=== PATIENT | female | born 1995 | race American Indian/Alaskan Native ===

== ENCOUNTER 2018-10-17 00:49 | Emergency (ER) | payer MEDICAID ==
[2018-10-17 01:22] LABS: Basophils % (Auto) 0.5 % (0.0-1.8); Eosinophils # (Auto) 0.1 K/mm3 (0.0-0.4); Eosinophils % (Auto) 1.2 % (0.0-4.3); Hematocrit 35.7 % (30.3-42.9); Hemoglobin 12.9 gm/dl (10.1-14.3); Lymphocytes # (Auto) 3.2 K/mm3 (1.2-5.4); Lymphocytes % (Auto) 31.4 % (13.4-35.0); Mean Corpuscular HGB Conc 36 % (30-34); Mean Corpuscular Volume 91 fl (79-97); Platelet Count 307 K/mm3 (140-440); Red Blood Count 3.93 M/mm3 (3.65-5.03); Red Cell Distribution Width 13.3 % (13.2-15.2)
[2018-10-17 01:42] LABS: BUN/Creatinine Ratio 13; Blood Urea Nitrogen 8 mg/dL (7-17); Calcium 9.3 mg/dL (8.4-10.2); Hemolysis Index 11
[2018-10-17 02:10] LABS: Bilirubin,Urine NEG (Negative); Blood,Urine NEG (Negative); Color,Urine Yellow (Yellow); Mucus,Urine FEW /HPF; Protein,Urine <15 mg/dL mg/dL (Negative); Urobilinogen,Urine < 2.0 mg/dL (<2.0)
[2018-10-17 02:32] LABS: HCG Qualitative,Urine Positive (Negative)
[2018-10-17] MEDS ORDERED: ZOFRAN IV ONE (03:51)
[2018-10-17] MEDS ORDERED: BENTYL IM ONE (03:51)
--- NOTE | 2018-10-17 04:55 | Ultrasound Report ---
PROCEDURE: US OB <= 14 WEEKS FETUS TECHNIQUE: Real-time transabdominal sonography of the uterus, placenta, amniotic fluid, adnexa, and fetus was performed with image documentation. Measurements were obtained to determine age/size. M-mode Doppler was used to document heartbeat. ADDITIONAL GESTATION: None. HISTORY: abd pain pos preg COMPARISONS: None . FINDINGS: CRL: 29.2 mm, which corresponds to a gestational age of: 9 weeks, 5 days. Yolk Sac: Appropriate for gestational age. . Embryonic Cardiac Activity: 168 bpm . Gestational Sac: Size and shape are appropriate for gestational age Placenta: Normal Amniotic fluid: Appropriate for gestational age. Cervix: Normal. Right Ovary: Normal . Left Ovary: Normal . Estimated delivery date: 04/29/2019 . Uterus and adnexa: Normal. IMPRESSION: Single live intrauterine gestation at approximately 9 weeks and 5 days . EDC by US 04/17 . This document is electronically signed by Homer Wu MD., October 17 2018 05:53:03 AM ET
--- NOTE | 2018-10-17 05:31 | Emergency Department Report ---
ED Abdominal Pain HPI - General Chief Complaint: Abdominal Pain Stated Complaint: / CRAMPING Time Seen by Provider: 10/17/18 03:49 Source: patient Mode of arrival: Ambulatory Limitations: No Limitations - History of Present Illness Initial Comments: pt is a 22 y/o aaf G2, P1, A0, pt is 8 weeks ,who present for abd dominal pain with n/v x 1 week, abd cramping worsening, there are no relieving or exacerbating factors. MD Complaint: abdominal pain (generalized ) Onset/Timin -: week(s) Location: LLQ, RLQ, suprapubic Radiation: LLQ, RLQ, suprapubic Migration to: suprapubic Severity: moderate Severity scale (0 -10): 5 Quality: cramping Consistency: constant Improves With: nothing Worsens With: nothing Associated Symptoms: denies other symptoms, nausea, vomiting. denies: fever, chills, constipation, dysuria, melena - Related Data LMP Date: 07/16/18 Previous Rx's Medication Instructions Recorded Last Taken Type Acetaminophen [Acetaminophen TAB] 650 mg PO Q6HR PRN #30 tablet 10/17/18 Unknown Rx Ondansetron [Zofran Odt] 4 mg PO Q8HR PRN #12 tab.rapdis 10/17/18 Unknown Rx Allergies Allergy/AdvReac Type Severity Reaction Status Date / Time No Known Allergies Allergy Verified 10/17/18 00:53 ED Review of Systems ROS: Stated complaint: / CRAMPING Other details as noted in HPI Constitutional: denies: chills, fever Eyes: denies: eye pain, eye discharge, vision change ENT: denies: ear pain, throat pain Respiratory: denies: cough, shortness of breath, wheezing Cardiovascular: denies: chest pain, palpitations Endocrine: no symptoms reported Gastrointestinal: abdominal pain, nausea, vomiting. denies: diarrhea, constipation, hematemesis, melena Genitourinary: frequency, dyspareunia. denies: urgency, dysuria, discharge Musculoskeletal: denies: back pain, joint swelling, arthralgia Skin: denies: rash, lesions Neurological: denies: headache, weakness, paresthesias Psychiatric: denies: anxiety, depression Hematological/Lymphatic: denies: easy bleeding, easy bruising ED Past Medical Hx - Past Medical History Previous Medical History?: No - Surgical History Past Surgical History?: No - Social History Smoking Status: Never Smoker Substance Use Type: None - Medications Home Medications: Home Medications Medication Instructions Recorded Confirmed Last Taken Type Acetaminophen [Acetaminophen TAB] 650 mg PO Q6HR PRN #30 tablet 10/17/18 Unknown Rx Ondansetron [Zofran Odt] 4 mg PO Q8HR PRN #12 tab.rapdis 10/17/18 Unknown Rx ED Physical Exam - General Limitations: No Limitations General appearance: alert, in no apparent distress - Head Head exam: Present: atraumatic, normocephalic - Eye Eye exam: Present: normal appearance, PERRL, EOMI Pupils: Present: normal accommodation - ENT ENT exam: Present: normal exam, mucous membranes moist - Neck Neck exam: Present: normal inspection, full ROM. Absent: tenderness, lymphadenopathy, thyromegaly - Respiratory Respiratory exam: Present: normal lung sounds bilaterally. Absent: respiratory distress, wheezes, stridor, chest wall tenderness - Cardiovascular Cardiovascular Exam: Present: regular rate, normal rhythm. Absent: systolic murmur, diastolic murmur, rubs, gallop - GI/Abdominal GI/Abdominal exam: Present: soft, tenderness (superpubic ), normal bowel sounds. Absent: distended, guarding, rebound, rigid, bruit, hernia - Rectal Rectal exam: Present: deferred - External exam: Present: other (deferred by patient ) - Extremities Exam Extremities exam: Present: normal inspection - Back Exam Back exam: Present: normal inspection, full ROM. Absent: tenderness, CVA tender ness (R), CVA tenderness (L), muscle spasm, rash noted - Neurological Exam Neurological exam: Present: alert, oriented X3, CN II-XII intact, normal gait - Psychiatric Psychiatric exam: Present: normal affect, normal mood - Skin Skin exam: Present: warm, dry, intact, normal color. Absent: rash ED Course Vital Signs 10/17/18 00:54 Temperature 98.1 F Pulse Rate 104 H Respiratory 18 Rate Blood Pressure 120/71 O2 Sat by Pulse 99 Oximetry ED Medical Decision Making - Lab Data Result diagrams: 10/17/18 00:58 10/17/18 00:58 P - EKG Data EKG shows normal: sinus rhythm, axis Rate: normal - Radiology Data Radiology results: report reviewed, image reviewed ROCEDURE: US OB <= 14 WEEKS FETUS TECHNIQUE: Real-time transabdominal sonography of the uterus, placenta, amniotic fluid, adnexa, and fetus was performed with image documentation. Measurements were obtained to determine age/size. M-mode Doppler was used to document heartbeat. ADDITIONAL GESTATION: None. HISTORY: abd pain pos preg COMPARISONS: None . FINDINGS: CRL: 29.2 mm, which corresponds to a gestational age of: 9 weeks, 5 days. Yolk Sac: Appropriate for gestational age. . Embryonic Cardiac Activity: 168 bpm . Gestational Sac: Size and shape are appropriate for gestational age Placenta: Normal Amniotic fluid: Appropriate for gestational age. Cervix: Normal. Right Ovary: Normal . Left Ovary: Normal . Estimated delivery date: 04/29/2019 . Uterus and adnexa: Normal. IMPRESSION: Single live intrauterine gestation at approximately 9 weeks and 5 days . EDC by US 04/29/2019 . This document is electronically signed by Yanira Gustafson MD., October 17 2018 05:53:03 AM ET Transcribed By: [place] Dictated By: YANIRA GUSTAFSON MD Electronically Authenticated By: YANIRA GUSTAFSON MD Signed Date/Time: 10/17/18 0455 DD/ 0436 TD/TT: 10/17/18 0437 - Medical Decision Making Ultrasound: Single IVP 9weeks 5 days, FHR 166 bpm, nausea relieved, cramping decreased plan: follow up with OBGYN in 2 days, zofran prn, nausea, continue to hydrate return to ed if symptoms worsen. Critical care attestation.: If time is entered above; I have spent that time in minutes in the direct care of this critically ill patient, excluding procedure time. ED Disposition Clinical Impression: Nausea and vomiting in , Threatened miscarriage Abdominal pain Qualifiers: Abdominal location: generalized Qualified Code(s): R10.84 - Generalized abdominal pain Disposition: - TO HOME OR SELFCARE Is pt being admited?: No Does the pt Need Aspirin: No Condition: Stable Instructions: Abdominal Pain (ED), Threatened Miscarriage (ED), Acute Nausea and Vomiting (ED) Prescriptions: Acetaminophen [Acetaminophen TAB] 650 mg PO Q6HR PRN #30 tablet PRN Reason: Pain Ondansetron [Zofran Odt] 4 mg PO Q8HR PRN #12 tab.rapdis PRN Reason: Nausea Referrals: ANGELA NASSAR MD [Staff Physician] - 3-5 Days Forms: Work/School Release Form(ED) Time of Disposition: 05:45
[2018-10-17 06:45] VITALS: BP 122/76
== END 2018-10-17 07:24 | disposition home or self-care (01) ==
LOC: ED 00:49
DX: O20.0 Threatened abortion (principal); O21.9 Vomiting of pregnancy, unspecified; Z3A.09 9 weeks gestation of pregnancy
CPT/HCPCS: 36415; 76801; 80048; 81001; 81025; 84702; 84703; 85025; 86900; 86901; 96372; 96374; 99284; J0500; J2405

== ENCOUNTER 2018-11-06 15:13 | Emergency (ER) | payer MEDICAID ==
[2018-11-06] MEDS ORDERED: TYLENOL ONE ×2 (15:55)
--- NOTE | 2018-11-06 15:55 | Emergency Department Report ---
Blank Doc - Documentation Documentation: 22 y/o female presents to ED 11 weeks c/o of pelvic cramping worse with movement also has upper dental pain. Plan evaluate
--- NOTE | 2018-11-06 18:20 | Emergency Department Report ---
ED General Adult HPI - General Chief complaint: Dental/Oral Stated complaint: TOOTHACHE/LOWER ABD PAIN Time Seen by Provider: 11/06/18 15:53 Source: patient Mode of arrival: Ambulatory Limitations: No Limitations - History of Present Illness Initial comments: 22-year-old female comes in complaining of toothache 2 months and states she has lower abdominal pain 1 week. Patient reports that she is about 2 months . Patient is 2 para 1. Patient is followed by a [facility]. Patient denies any nausea vomiting no fever no chills no vaginal bleeding or vaginal discharge. Patient denies any facial swelling. Onset/Timin -: week(s) (1 week lower abdominal pain), month(s) (tooth pain ) Location: abdomen Radiation: non-radiation Severity scale (0 -10): 6 Quality: sharp Consistency: intermittent Improves with: none Worsens with: movement Associated Symptoms: denies other symptoms Treatments Prior to Arrival: none - Related Data Previous Rx's Medication Instructions Recorded Last Taken Type Acetaminophen [Acetaminophen TAB] 650 mg PO Q6HR PRN #30 tablet 10/17/18 Unknown Rx Ondansetron [Zofran Odt] 4 mg PO Q8HR PRN #12 tab.rapdis 10/17/18 Unknown Rx Amoxicillin [Amoxicillin TAB] 875 mg PO BID 10 Days #20 tablet 11/06/18 Unknown Rx Allergies Allergy/AdvReac Type Severity Reaction Status Date / Time No Known Allergies Allergy Verified 11/06/18 15:54 ED Review of Systems ROS: Stated complaint: TOOTHACHE/LOWER ABD PAIN Other details as noted in HPI Comment: All other systems reviewed and negative ED Past Medical Hx - Past Medical History Previous Medical History?: No - Surgical History Past Surgical History?: No - Social History Smoking Status: Never Smoker - Medications Home Medications: Home Medications Medication Instructions Recorded Confirmed Last Taken Type Acetaminophen [Acetaminophen TAB] 650 mg PO Q6HR PRN #30 tablet 10/17/18 Unknown Rx Ondansetron [Zofran Odt] 4 mg PO Q8HR PRN #12 tab.rapdis 10/17/18 Unknown Rx Amoxicillin [Amoxicillin TAB] 875 mg PO BID 10 Days #20 tablet 11/06/18 Unknown Rx ED Physical Exam - General Limitations: No Limitations General appearance: alert, in no apparent distress - Head Head exam: Present: atraumatic, normocephalic - Eye Eye exam: Present: normal appearance - GI/Abdominal GI/Abdominal exam: Present: soft, normal bowel sounds. Absent: distended, tenderness - Back Exam Back exam: Present: normal inspection, full ROM - Neurological Exam Neurological exam: Present: alert, oriented X3, normal gait - Psychiatric Psychiatric exam: Present: normal affect, normal mood - Skin Skin exam: Present: warm, dry, intact, normal color. Absent: rash ED Course Vital Signs 11/06/18 15:54 Temperature 97.5 F L Pulse Rate 112 H Blood Pressure 124/76 ED Medical Decision Making - Radiology Data Radiology results: report reviewed Patient: LISA NOBLES MR#: [id number] : 1995 Acct:[id number] Age/Sex: 22 / F ADM Date: 11/06/18 Loc: ED Attending Dr: Ordering Physician: MARIBELL BRICE Date of Service: 11/06/18 Procedure(s): US OB <= 14 weeks fetus Accession Number(s): [id number] cc: MARIBELL BRICE PROCEDURE: US OB <= 14 WEEKS FETUS TECHNIQUE: Real-time transvaginal sonography of the uterus, placenta, amniotic fluid, adnexa, and fetus was performed with image documentation. Measurements were obtained to determine age/size. M-mode Doppler was used to document heartbeat. HISTORY: lower abd pair LMP 07/17/2018 with estimated age 16 weeks 0 days and EDC 04/23/2019. Serum beta hCG level 52,852 COMPARISONS: Ultrasound pelvis 10/17/2018 . FINDINGS: CRL: 53.7 mm, which corresponds to a gestational age of: 12 weeks, 0 days. Yolk Sac: Normal . Embryonic Cardiac Activity: 158 BPM . Gestational Sac: Normal . Placenta: Located posterior Uterus: 13.6 x 7.2 x 8.9 cm, enlarged Right Ovary: Normal . 2.6 x 1.5 x 2.2 cm Left Ovary: Normal . 2.1 x 1.3 x 2.0 cm Estimated delivery date: 05/21/2019 . Comment: Complete anatomic survey at 18-20 weeks suggested . IMPRESSION: 1. Single living intrauterine gestation at approximately 12 weeks 0 days . 2. EDC by US 05/21/2019 . This document is electronically signed by Renay Bynum MD., November 06 2018 06:44:55 PM ET Transcribed By: [facility] Dictated By: RENAY BYNUM MD Electronically Authenticated By: RENAY BYNUM MD Signed Date/Time: 11/06/181845 DD/ 19 TD/TT: 11/06/18 1805 - Medical Decision Making 21-year-old -[place] female comes in for suprapubic pain. Patient pushes 12 weeks . Ultrasound was completed shows 1 intrauterine gestation approximately 12 weeks with expected date of delivery of 05/21/2019. Urine analysis shows the patient has a urinary tract infection with 3+ bacteria with large amounts of leukoesterase. Patient be treated with amoxicillin 875 mg twice a day. This will also cover her for a dental abscess. A urine culture will be sent out. Patient be given Tylenol for pain management. Patient is to follow-up wit h her primary PHYSICAL DIRECTOR provider in the next 2-3 days. Critical care attestation.: If time is entered above; I have spent that time in minutes in the direct care of this critically ill patient, excluding procedure time. ED Disposition Clinical Impression: Pain, dental, Urinary tract infection during in first trimester Disposition: DC-01 TO HOME OR SELFCARE Is pt being admited?: No Does the pt Need Aspirin: No Condition: Stable Instructions: Urinary Tract Infection in Women (ED), Toothache (ED) Additional Instructions: Complete antibiotics as prescribed. Increase water intake. Take your vitamins and follow-up with her primary PHYSICAL DIRECTOR provider. Prescriptions: Amoxicillin [Amoxicillin TAB] 875 mg PO BID 10 Days #20 tablet Referrals: [facility] [Provider Group] - 3-5 Days
--- NOTE | 2018-11-06 18:46 | Ultrasound Report ---
PROCEDURE: US OB <= 14 WEEKS FETUS TECHNIQUE: Real-time transvaginal sonography of the uterus, placenta, amniotic fluid, adnexa, and fe tus was performed with image documentation. Measurements were obtained to determine age/size. M -mode Doppler was used to document heartbeat. HISTORY: lower abd pair LMP 07/17/2018 with estimated age 16 weeks 0 days and EDC 04/23/2019. Serum beta hCG level 52,852 COMPARISONS: Ultrasound pelvis 10/17/2018 . FINDINGS: CRL: 53.7 mm, which corresponds to a gestational age of: 12 weeks, 0 days. Yolk Sac: Normal . Embryonic Cardiac Activity: 158 BPM . Gestational Sac: Normal . Placenta: Located posterior Uterus: 13.6 x 7.2 x 8.9 cm, enlarged Right Ovary: Normal . 2.6 x 1.5 x 2.2 cm Left Ovary: Normal . 2.1 x 1.3 x 2.0 cm Estimated delivery date: 05/21/2019 . Comment: Complete anatomic survey at 18-20 weeks suggested . IMPRESSION: 1. Single living intrauterine gestation at approximately 12 weeks 0 days . 2. EDC by US 05/21/2019 . This document is electronically signed by Sheron Bynum MD., November 06 2018 06:44:55 PM ET
[2018-11-06 18:52] LABS: Bacteria,Urine 2+ /HPF (Negative); Bilirubin,Urine NEG (Negative); Blood,Urine NEG (Negative); Color,Urine Yellow (Yellow); Mucus,Urine 2+ /HPF; Protein,Urine <15 mg/dL mg/dL (Negative); Urobilinogen,Urine < 2.0 mg/dL (<2.0)
[2018-11-06 20:05] VITALS: BP 128/72
[2018-12-18] MEDS ORDERED: TYLENOL PO ONE (08:42)
== END 2018-11-06 20:04 | disposition home or self-care (01) ==
LOC: ED 15:13
DX: O23.41 Unspecified infection of urinary tract in pregnancy, first trimester (principal); O26.891 Other specified pregnancy related conditions, first trimester; K08.89 Other specified disorders of teeth and supporting structures; Z3A.12 12 weeks gestation of pregnancy; Z79.899 Other long term (current) drug therapy
CPT/HCPCS: 36415; 76801; 81001; 84702; 99284

== ENCOUNTER 2019-04-02 07:28 | Observation (INO) | payer MEDICAID ==
[2019-04-02] MEDS ORDERED: LACTATED RINGERS 500 ML IV ONE (07:47)
[2019-04-02] MEDS ORDERED: TERBUTALINE 1 MG/1 ML INJ SUB-Q ONE (08:24)
[2019-04-02] MEDS ORDERED: MAGNESIUM SULFATE 40GM/1000ML 40 GM/1,000 ML BAG IV ONE (09:08)
[2019-04-02] MEDS ORDERED: MAGNESIUM SULFATE 4 GM/100 ML BAG IV ONE ×3 (09:09→09:28)
[2019-04-02] MEDS ORDERED: BUTORPHANOL 2 MG/1 ML INJ IV PRN ×2 (09:10→19:23)
[2019-04-02] MEDS ORDERED: LIDOCAINE (2%) 20 MG/1 ML VIAL 20 ML MDV INFILTRATI ONE (09:10)
[2019-04-02] MEDS ORDERED: ePHEDrine SULFATE 50 MG/1 ML INJ IV PRN (09:10)
[2019-04-02] MEDS ORDERED: MINERAL OIL 30 ML ORAL LIQD PO PRN (09:10)
[2019-04-02] MEDS ORDERED: TERBUTALINE 1 MG/1 ML INJ IVP PRN (09:10)
[2019-04-02] MEDS ORDERED: TERBUTALINE 1 MG/1 ML INJ SUB-Q PRN (09:10)
[2019-04-02] MEDS ORDERED: BUTORPHANOL 2 MG/1 ML INJ IV ONE (09:30)
--- NOTE | 2019-04-02 09:39 | History and Physical Report ---
History of Present Illness Date of examination: 04/02/19 Date of admission: 04/02/2019 Chief complaint: Contrations History of present illness: 23yo at 33+5/7 weeks by second trimester US with ANDRES 05/16/2019. She presents to OB triage with painful contractions. PNC at [facility] since ~17 weeks (4 visits total). Prental labs to date: O/pos, antibidy negative Rubella immune Hep B NR RPR NR HVS 2 NR HIV NR pap NILM GC/Chlamydia/Trich negativex3 Hb electrophoresis: AA MSAFP negative Past History Past Surgical History: no surgical history Social history: no significant social history - Obstetrical History Expected Date of Delivery: 05/16/19 Actual Gestation: 33 Week(s) 5 Day(s) : 2 Para: 1 Number of Living Children: 1 ( 2018 Female ~6 lbs) Medications and Allergies Allergies Allergy/AdvReac Type Severity Reaction Status Date / Time No Known Allergies Allergy Verified 11/06/18 15:54 Home Medications Medication Instructions Recorded Confirmed Last Taken Type Acetaminophen [Acetaminophen TAB] 650 mg PO Q6HR PRN #30 tablet 10/17/18 Unknown Rx Ondansetron [Zofran Odt] 4 mg PO Q8HR PRN #12 tab.rapdis 10/17/18 Unknown Rx Amoxicillin [Amoxicillin TAB] 875 mg PO BID 10 Days #20 tablet 11/06/18 Unknown Rx Active Meds: Active Medications Butorphanol Tartrate (Stadol) 2 mg IV Q2H PRN PRN Reason: Pain , Severe (7-10) Ephedrine Sulfate (Ephedrine Sulfate) 10 mg IV Q2M PRN PRN Reason: Hypotension Oxytocin/Sodium Chloride (Pitocin/Ns 20 Unit/1000ml Drip) 20 units in 1,000 mls @ 125 mls/hr IV DIRECT ANN Oxytocin/Sodium Chloride (Pitocin/Ns 30 Unit/500ml) 30 units in 500 mls @ 1 mls/hr IV TITR ANN; Protocol Lactated Ringer's (Lactated Ringers) 1,000 mls @ 125 mls/hr IV DIRECT ANN Cefazolin Sodium 2 gm/ Sodium (Chloride) 100 mls @ 200 mls/hr IV ONCE ONE; Protocol Stop: 04/02/19 09:39 Magnesium Sulfate (Magnesium Sulfate 40gm/1000ml) 40 gm in 1,000 mls @ 50 mls/hr IV DIRECT ANN Magnesium Sulfate (Magnesium Sulfate 40gm/1000ml) 40 gm in 1,000 mls @ 50 mls/hr IV DIRECT ANN Magnesium Sulfate (Magnesium Sulfate 4gm/100ml) 4 gm in 100 mls @ 300 mls/hr IV ONCE ONE Stop: 04/02/19 09:47 Mineral Oil (Mineral Oil) 30 ml PO QHS PRN PRN Reason: Constipation Terbutaline Sulfate (Brethine) 0.25 mg SUB-Q ONCE PRN PRN Reason: Hyperstimulation/Hypertonicity Terbutaline Sulfate (Brethine) 0.25 mg IVP ONCE PRN PRN Reason: Hyperstimulation/Hypertonicity - Vital Signs Vital signs: Vital Signs Pulse BP 73 109/67 04/02/19 07:39 04/02/19 07:39 Temp Pulse Resp BP Pulse Ox 97.4 F L 73 109/67 04/02/19 08:56 04/02/19 07:39 04/02/19 07:39 Physical Exam per RN on admission - Physical Exam Breasts: Positive: deferred Cardiovascular: Regular rate Lungs: Positive: Clear to auscultation Abdomen: Positive: normal appearance Cervix: Positive: other (Closed,long,high soft/posterior) - Obstetrical FHR: category 1 Uterine Contraction Duration: Q2 minutes Uterine Contraction Pattern: Regular Uterine Contraction Intensity: Moderate Results All other labs normal. Assessment and Plan Contractions Plan: Admission labs UA/UDS Abx Mag steroids CFM US for JACQUELYN/EFW/Presentation Maternal/ welel being reassuring Maurice Archer
[2019-04-02] MEDS: MAGNESIUM SULFATE 40GM/1000ML 40 GM/1,000 ML BAG IV SCH (09:49)
[2019-04-02] MEDS: LACTATED RINGERS 1,000 ML IV SCH ×2 (09:52→22:26)
[2019-04-02] MEDS ORDERED: OXYTOCIN 20 UNIT/1000ML DRIP 20 UNITS/1,000 ML BAG IV SCH (10:00)
[2019-04-02] MEDS ORDERED: MAGNESIUM SULFATE 40GM/1000ML 40 GM/1,000 ML BAG IV SCH (10:00)
[2019-04-02] MEDS ORDERED: OXYTOCIN DRIP 30 UNITS/500 ML BAG IV SCH (10:00)
[2019-04-02 10:33] LABS: Hematocrit 32.8 % (30.3-42.9); Hemoglobin 10.9 gm/dl (10.1-14.3); Mean Corpuscular HGB Conc 33 % (30-34); Mean Corpuscular Volume 92 fl (79-97); Platelet Count 221 K/mm3 (140-440); Red Blood Count 3.55 M/mm3 (3.65-5.03); Red Cell Distribution Width 13.7 % (13.2-15.2)
[2019-04-02] MEDS: BETAMET ACET/BETAMET NA PH 6 MG/ML INJ 5 ML MDV IM SCH (10:33)
[2019-04-02] MEDS ORDERED: ceFAZolin/Water 2 GM/20 ML 2 GM/20 ML SYRINGE IV ONE (11:00)
--- NOTE | 2019-04-02 12:18 | Ultrasound Report ---
Limited OB ultrasound for JACQUELYN FINDINGS: JACQUELYN is normal at 19 cm. Signer Name: Benjamín Archer MD Signed: 04/02/2019 12:13 PM Workstation Name: [id number]
--- NOTE | 2019-04-02 15:48 | Ultrasound Report ---
Limited OB ultrasound for position FINDINGS: Single fetus is identified in vertex presentation. heart rate is 129 bpm. Placenta is anterior and free of the os. Appropriate measurements reveal an MA of 34 weeks 1 day for an EDC of 1 07/14/2018. This correlates with the clinical dates. No definite anomalies. Signer Name: Benjamín Archer MD Signed: 04/02/2019 3:43 PM Workstation Name: [id number]
--- NOTE | 2019-04-02 15:49 | Ultrasound Report ---
LIMITED RUQ ABDOMINAL ULTRASOUND INDICATION: Right side abdominal pain in patient. COMPARISON: No relevant prior imaging study available. FINDINGS: Pancreas: Visualized portions show no significant abnormality. Abdominal Aorta: No significant abnormality. IVC: No significant abnormality. Liver: No significant abnormality. Normal hepatopedal blood flow in the main portal vein. Gallbladder: No significant abnormality. Bile ducts: No significant abnormality. Common bile duct measures 2.4 mm. Right kidney: No significant abnormality visualized.. Free fluid: None. Additional Findings: None. No abnormalities visualized in the right lower quadrant. IMPRESSION: 1. Normal exam. Signer Name: Seth Rico MD Signed: 04/02/2019 3:45 PM Workstation Name: [id number]
[2019-04-02 16:56] LABS: Bilirubin,Urine NEG (Negative); Blood,Urine MOD (Negative); Color,Urine Straw (Yellow); Protein,Urine <15 mg/dL mg/dL (Negative); Urobilinogen,Urine < 2.0 mg/dL (<2.0)
[2019-04-02 19:46] LABS: Amphetamine Screen,Urine PRESUMPTIVE NEGATIVE; Benzodiazepines Screen,Urine PRESUMPTIVE NEGATIVE; Cannabinoid Screen,Urine PRESUMPTIVE NEGATIVE; Cocaine Screen,Urine PRESUMPTIVE NEGATIVE; Methadone Screen,Urine PRESUMPTIVE NEGATIVE; Opiate Screen,Urine PRESUMPTIVE NEGATIVE
[2019-04-02] MEDS ORDERED: LORazepam 2 MG/ML VIAL IV ONE (20:00)
--- NOTE | 2019-04-02 20:47 | Ultrasound Report ---
Limited abdominal ultrasound the right lower quadrant INDICATION: Right lower quadrant pain, possible appendicitis FINDINGS: In the area of pain only the fetus is identified. There is no fluid or enlarged appendix se en. Signer Name: Benjamín Archer MD Signed: 04/02/2019 8:42 PM Workstation Name: [id number]
--- NOTE | 2019-04-02 20:48 | Ultrasound Report ---
Limited OB ultrasound for abruption FINDINGS: The placenta is anterior in position. There is no abruption seen. Signer Name: Benjamín Archer MD Signed: 04/02/2019 8:43 PM Workstation Name: [id number]
--- NOTE | 2019-04-02 21:00 | Progress Note ---
Assessment and Plan contractions Abdominal pain Mild tachycardia P: suspect mild dehydration, possible constipation not in labor well being reassuring complete steroids, d/c magnesium when completed IV fluids ativan 1mg PRN stadol PRN serial magnesium levels abx. Maternal/ well being reassuring overall. Maurice Archer MD Subjective - Subjective Date of service: 04/02/19 Interval history: 23yo at 33+5/7 weeks by second trimester US with ANDRES 05/16/2019. Patient seen and examined on PM rounds labs and extensive imaging reviewed. No appendicitis, no abruption, JACQUELYN 19. Patient reports carrying around baby all day on day the pain started. She reports occasional constipation but had a BM on day of admission. She repoorts having mild dysuria and contractions on day of admission. No Nausea, vomiting, change in bowel or bladder habits. She reports GFM, no VB, no LOF. Objective - Vital Signs Vital Signs: Vital Signs - 12hr 04/02/19 04/02/19 04/02/19 10:03 10:15 11:03 Temperature 98.5 F Pulse Rate 95 H 108 H Respiratory 16 Rate Blood Pressure 120/70 111/55 O2 Sat by Pulse Oximetry 04/02/19 04/02/19 04/02/19 11:13 11:18 11:23 Temperature Pulse Rate 88 89 105 H Respiratory Rate Blood Pressure O2 Sat by Pulse 98 97 98 Oximetry 04/02/19 04/02/19 04/02/19 11:28 11:32 11:33 Temperature Pulse Rate 87 99 H 90 Respiratory Rate Blood Pressure O2 Sat by Pulse 98 94 97 Oximetry 04/02/19 04/02/19 04/02/19 11:38 11:43 11:45 Temperature Pulse Rate 102 H 91 H 92 H Respiratory Rate Blood Pressure O2 Sat by Pulse 98 95 94 Oximetry 04/02/19 04/02/19 04/02/19 11:48 11:51 11:53 Temperature Pulse Rate 90 99 H 94 H Respiratory Rate Blood Pressure O2 Sat by Pulse 95 94 94 Oximetry 04/02/19 04/02/19 04/02/19 11:58 11:59 12:03 Temperature Pulse Rate 88 95 H 83 Respiratory Rate Blood Pressure O2 Sat by Pulse 94 97 94 Oximetry 04/02/19 04/02/19 04/02/19 12:04 12:09 12:12 Temperature Pulse Rate 98 H 90 88 Respiratory Rate Blood Pressure 106/60 O2 Sat by Pulse 94 94 94 Oximetry 04/02/19 04/02/19 04/02/19 12:14 12:19 12:24 Temperature Pulse Rate 87 81 89 Respiratory Rate Blood Pressure O2 Sat by Pulse 94 94 94 Oximetry 04/02/19 04/02/19 04/02/19 12:29 12:33 12:34 Temperature Pulse Rate 91 H 92 H 89 Respiratory Rate Blood Pressure O2 Sat by Pulse 94 94 94 Oximetry 04/02/19 04/02/19 04/02/19 12:39 12:44 12:49 Temperature Pulse Rate 94 H 96 H 95 H Respiratory Rate Blood Pressure O2 Sat by Pulse 100 100 100 Oximetry 04/02/19 04/02/19 04/02/19 12:54 12:59 13:04 Temperature Pulse Rate 87 95 H 86 Respiratory Rate Blood Pressure 122/69 O2 Sat by Pulse 100 100 100 Oximetry 04/02/19 04/02/19 04/02/19 13:09 13:14 13:19 Temperature Pulse Rate 88 84 92 H Respiratory Rate Blood Pressure O2 Sat by Pulse 100 100 100 Oximetry 04/02/19 04/02/19 04/02/19 13:24 13:29 13:34 Temperature Pulse Rate 85 101 H 90 Respiratory Rate Blood Pressure O2 Sat by Pulse 100 100 100 Oximetry 04/02/19 04/02/19 04/02/19 13:39 13:44 13:49 Temperature Pulse Rate 88 98 H 109 H Respiratory Rate Blood Pressure O2 Sat by Pulse 100 100 100 Oximetry 04/02/19 04/02/19 04/02/19 13:54 13:59 14:04 Temperature Pulse Rate 97 H 87 88 Respiratory Rate Blood Pressure 114/58 O2 Sat by Pulse 100 100 100 Oximetry 04/02/19 04/02/19 04/02/19 14:09 14:14 14:19 Temperature Pulse Rate 105 H 106 H 102 H Respiratory Rate Blood Pressure O2 Sat by Pulse 100 100 100 Oximetry 04/02/19 04/02/19 04/02/19 14:24 14:29 14:34 Temperature Pulse Rate 106 H 104 H 102 H Respiratory Rate Blood Pressure O2 Sat by Pulse 100 100 100 Oximetry 04/02/19 04/02/19 04/02/19 14:39 14:44 14:49 Temperature Pulse Rate 99 H 101 H 106 H Respiratory Rate Blood Pressure O2 Sat by Pulse 100 100 100 Oximetry 04/02/19 04/02/19 04/02/19 14:54 14:59 15:03 Temperature Pulse Rate 94 H 118 H 106 H Respiratory Rate Blood Pressure 110/60 O2 Sat by Pulse 100 100 Oximetry 04/02/19 04/02/19 04/02/19 15:04 15:09 15:14 Temperature Pulse Rate 94 H 87 110 H Respiratory Rate Blood Pressure O2 Sat by Pulse 100 100 100 Oximetry 04/02/19 04/02/19 04/02/19 15:19 15:24 15:29 Temperature Pulse Rate 115 H 112 H 110 H Respiratory Rate Blood Pressure O2 Sat by Pulse 100 100 99 Oximetry 04/02/19 04/02/19 04/02/19 15:34 15:39 15:44 Temperature Pulse Rate 107 H 111 H 103 H Respiratory Rate Blood Pressure O2 Sat by Pulse 100 100 99 Oximetry 04/02/19 04/02/19 04/02/19 15:45 15:49 15:54 Temperature Pulse Rate 102 H 95 H Respiratory 16 Rate Blood Pressure O2 Sat by Pulse 99 100 Oximetry 04/02/19 04/02/19 04/02/19 15:59 16:00 16:03 Temperature 98.2 F Pulse Rate 96 H 99 H Respiratory 16 Rate Blood Pressure 97/50 O2 Sat by Pulse 100 Oximetry 04/02/19 04/02/19 04/02/19 16:04 16:09 16:14 Temperature Pulse Rate 100 H 106 H 101 H Respiratory Rate Blood Pressure O2 Sat by Pulse 100 99 100 Oximetry 04/02/19 04/02/19 04/02/19 16:19 16:24 16:29 Temperature Pulse Rate 126 H 110 H 91 H Respiratory Rate Blood Pressure O2 Sat by Pulse 99 100 100 Oximetry 04/02/19 04/02/19 04/02/19 16:34 16:39 16:44 Temperature Pulse Rate 114 H 115 H 98 H Respiratory Rate Blood Pressure O2 Sat by Pulse 99 100 100 Oximetry 04/02/19 04/02/19 04/02/19 16:49 16:54 16:59 Temperature Pulse Rate 99 H 105 H 99 H Respiratory Rate Blood Pressure O2 Sat by Pulse 100 100 100 Oximetry 04/02/19 04/02/19 04/02/19 17:03 17:04 17:09 Temperature Pulse Rate 117 H 104 H 119 H Respiratory Rate Blood Pressure 106/59 O2 Sat by Pulse 100 100 Oximetry 04/02/19 04/02/19 04/02/19 17:14 17:19 17:24 Temperature Pulse Rate 116 H 114 H 105 H Respiratory Rate Blood Pressure O2 Sat by Pulse 99 99 99 Oximetry 04/02/19 04/02/19 04/02/19 17:29 17:34 17:39 Temperature Pulse Rate 112 H 120 H 97 H Respiratory Rate Blood Pressure O2 Sat by Pulse 98 100 100 Oximetry 04/02/19 04/02/19 04/02/19 17:44 17:49 17:54 Temperature Pulse Rate 97 H 107 H 105 H Respiratory Rate Blood Pressure O2 Sat by Pulse 99 100 100 Oximetry 04/02/19 04/02/19 04/02/19 17:59 18:04 18:09 Temperature Pulse Rate 107 H 113 H 116 H Respiratory Rate Blood Pressure 112/71 O2 Sat by Pulse 100 100 100 Oximetry 04/02/19 04/02/19 04/02/19 18:14 18:19 18:24 Temperature Pulse Rate 118 H 110 H 113 H Respiratory Rate Blood Pressure O2 Sat by Pulse 99 100 100 Oximetry 04/02/19 04/02/19 04/02/19 18:29 18:34 18:39 Temperature Pulse Rate 115 H 117 H 121 H Respiratory Rate Blood Pressure O2 Sat by Pulse 100 100 100 Oximetry 04/02/19 04/02/19 04/02/19 18:42 18:44 18:49 Temperature 98.9 F Pulse Rate 118 H 111 H Respiratory 20 Rate Blood Pressure O2 Sat by Pulse 100 100 Oximetry 04/02/19 04/02/19 04/02/19 18:54 18:59 19:04 Temperature Pulse Rate 116 H 121 H 132 H Respiratory Rate Blood Pressure 130/67 O2 Sat by Pulse 100 100 99 Oximetry 04/02/19 04/02/19 04/02/19 19:09 19:14 19:19 Temperature Pulse Rate 123 H 112 H 118 H Respiratory Rate Blood Pressure O2 Sat by Pulse 100 100 100 Oximetry 04/02/19 04/02/19 04/02/19 19:24 19:29 19:30 Temperature Pulse Rate 118 H 116 H Respiratory 28 H Rate Blood Pressure O2 Sat by Pulse 100 99 Oximetry 04/02/19 04/02/19 04/02/19 19:34 19:39 19:44 Temperature Pulse Rate 125 H 120 H 116 H Respiratory Rate Blood Pressure O2 Sat by Pulse 100 100 100 Oximetry 04/02/19 04/02/19 04/02/19 19:49 19:54 19:59 Temperature Pulse Rate 117 H 113 H 115 H Respiratory Rate Blood Pressure O2 Sat by Pulse 100 100 100 Oximetry 04/02/19 04/02/19 04/02/19 20:04 20:09 20:14 Temperature Pulse Rate 121 H 116 H 114 H Respiratory Rate Blood Pressure 120/59 O2 Sat by Pulse 99 100 100 Oximetry 04/02/19 04/02/19 04/02/19 20:19 20:24 20:29 Temperature Pulse Rate 112 H 130 H 119 H Respiratory Rate Blood Pressure O2 Sat by Pulse 100 100 99 Oximetry 04/02/19 04/02/19 04/02/19 20:34 20:39 20:44 Temperature Pulse Rate 119 H 108 H 106 H Respiratory Rate Blood Pressure O2 Sat by Pulse 100 99 100 Oximetry 04/02/19 04/02/19 20:49 20:54 Temperature Pulse Rate 105 H 112 H Respiratory Rate Blood Pressure O2 Sat by Pulse 100 100 Oximetry - Exam Cardiovascular: Other (mild tachycardia) Abdomen: Present: normal appearance, soft (nontender in all four qudrants, no peritoneal signs, negative Douglas's punch bilaterally) Uterus: Present: normal FHR: category 1 Uterine Contraction Monitor Mode: Palpation (no palpable contractions at bedside) Extremities: normal (negative Joshua's sign bilaterally) Deep Tendon Reflex Grade: Normal +2 - Labs Labs: Abnormal Labs 04/02/19 04/02/19 09:53 16:28 RBC 3.55 L Magnesium 4.50 H Laboratory Results - last 24 hr 04/02/19 04/02/19 04/02/19 09:53 09:58 16:28 WBC 10.1 RBC 3.55 L Hgb 10.9 Hct 32.8 MCV 92 MCH 31 MCHC 33 RDW 13.7 Plt Count 221 Magnesium 4.50 H Urine Color Urine Turbidity Urine pH Ur Specific [place] Urine Protein Urine Glucose (UA) Urine Ketones Urine Blood Urine Nitrite Urine Bilirubin Urine Urobilinogen Ur Leukocyte Esterase Urine WBC (Auto) Urine RBC (Auto) Urine Opiates Screen Urine Methadone Screen Ur Barbiturates Screen Ur Phencyclidine Scrn Ur Amphetamines Screen U Benzodiazepines Scrn Urine Cocaine Screen U Marijuana (THC) Screen Drugs of Abuse Note Blood Type O POSITIVE Antibody Screen Negative 04/02/19 04/02/19 16:36 16:36 WBC RBC Hgb Hct MCV MCH MCHC RDW Plt Count Magnesium Urine Color Straw Urine Turbidity Clear Urine pH 6.0 Ur Specific [place] 1.011 Urine Protein <15 mg/dl Urine Glucose (UA) Neg Urine Ketones 20 Urine Blood Mod Urine Nitrite Neg Urine Bilirubin Neg Urine Urobilinogen < 2.0 Ur Leukocyte Esterase Tr Urine WBC (Auto) 2.0 Urine RBC (Auto) 24.0 Urine Opiates Screen Presumptive negative Urine Methadone Screen Presumptive negative Ur Barbiturates Screen Presumptive negative Ur Phencyclidine Scrn Presumptive negative Ur Amphetamines Screen Presumptive negative U Benzodiazepines Scrn Presumptive negative Urine Cocaine Screen Presumptive negative U Marijuana (THC) Screen Presumptive negative Drugs of Abuse Note Disclamer Blood Type Antibody Screen
[2019-04-03] MEDS: MAGNESIUM SULFATE 40GM/1000ML 40 GM/1,000 ML BAG IV SCH (05:59)
[2019-04-03] MEDS ORDERED: ACETAMINOPHEN 325 MG TAB PO ONE (07:04)
[2019-04-03 08:58] VITALS: BP 114/63
[2019-04-03] MEDS: BETAMET ACET/BETAMET NA PH 6 MG/ML INJ 5 ML MDV IM SCH (11:09)
--- NOTE | 2019-04-03 11:54 | Discharge Summary ---
Providers - Providers Date of Admission: 04/02/19 09:49 Date of discharge: 04/03/19 Attending physician: KRISTIE CASTANON MD Primary care physician: KRISTIE CASTANON MD Hospitalization Reason for admission: IUP - (Patient admitted with contractions. SP steroids,antibiotics and Magnesium. No cervical change. Complete workup negative for abdominal/infectious etiology. ) Discharge diagnosis: other ( contractions-resolved) Condition at discharge: Stable Disposition: DC-01 TO HOME OR SELFCARE Plan - Provider Discharge Summary Activity: no heavy lifting 4 weeks, no strenuous exercise Diet: routine Additional instructions: [] Smoking cessation referral if applicable(refer to patient education folder for contact #) [] Refer to [facility]'s [facility] Booklet Call your doctor immediately for: * Fever > 100.5 * Heavy vaginal bleeding ( >1 pad per hour) * Severe persistent headache * Shortness of breath * Reddened, hot, painful area to leg or breast * Drainage or odor from incision. * Keep incision clean and dry at all times and follow doctor's instructions regarding bathing/showering - Follow up plan Follow up: KRISTIE CASTANON MD [Primary Care Provider] - 7 Days
== END 2019-04-03 12:50 | disposition home or self-care (01) ==
LOC: TRG 07:28 → INTOOBSV 09:49 → LD 09:49
PROVIDERS: ADMIT Obstetrics & Gynecology; ATTEND Obstetrics & Gynecology
DX: O62.9 Abnormality of forces of labor, unspecified (principal); O26.893 Other specified pregnancy related conditions, third trimester; R00.0 Tachycardia, unspecified; R10.9 Unspecified abdominal pain; Z3A.33 33 weeks gestation of pregnancy
CPT/HCPCS: 36415; 59025; 76705; 76815; 76816; 80307; 81001; 83735; 85014; 85018; 85027; 86850; 86900; 86901; 96365; 96366; 96368; 96372; 96375; G0378; J0595; J0690; J0702; J2060; J3105; J3475; J7120

== ENCOUNTER 2019-11-06 09:44 | Emergency (ER) | payer MEDICAID, SELFPAY ==
[2019-11-06] MEDS ORDERED: SODIUM CHLORIDE 0.9% 1000 ML 1,000 ML IV ONE (10:05)
[2019-11-06] MEDS ORDERED: IBUPROFEN 800 MG TAB PO ONE (10:06)
--- NOTE | 2019-11-06 10:06 | Emergency Department Report ---
ED Fever HPI - General Chief Complaint: Fever Stated Complaint: DIZZY, HEAD AND EYE PAIN Time Seen by Provider: 11/06/19 09:59 Source: patient, old records Exam Limitations: no limitations - History of Present Illness Initial Comments: This is a 23-year-old female without significant past medical history who presents with fever body aches facial pain for 2 days. Her [place]. 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 She denies cough. Denies shortness of breath. She lives with her and 2 children. No recent travel. She took Tylenol prior to arrival. Fever Severity/Quality: greater than 102 F Fever Therapy SHEARING MACHINE OPERATOR: Tylenol Associated Symptoms: headache, muscle aches (Diffuse body aches) ED Review of Systems ROS: Stated complaint: DIZZY, HEAD AND EYE PAIN Other details as noted in HPI Comment: All other systems reviewed and negative Constitutional: fever, malaise ENT: denies: congestion Respiratory: denies: cough Cardiovascular: denies: chest pain Neurological: headache ED Past Medical Hx - Past Medical History Previous Medical History?: Yes Hx Hypertension: No Hx Congestive Heart Failure: No Hx Diabetes: No Hx Deep Vein Thrombosis: No Hx Renal Disease: No Hx Sickle Cell Disease: No Hx Seizures: No Hx Asthma: No Hx COPD: No Hx HIV: No Additional medical history: vaginal dleivery x 2 - Surgical History Past Surgical History?: No - Social History Smoking Status: Never Smoker Substance Use Type: None - Medications Home Medications: Home Medications Medication Instructions Recorded Confirmed Last Taken Type Cholecalciferol (Vitamin D3) 50,000 unit PO 1XW 04/02/19 04/02/19 03/23/19 10:00 History [Vitamin D3 50,000UNIT CAP] Multivitamin Tablet 1 tab PO DAILY 04/02/19 04/02/19 Unknown History ED Physical Exam - General Limitations: No Limitations General appearance: alert, in no apparent distress - Head Head exam: Present: atraumatic, normocephalic - Eye Eye exam: Present: normal appearance - ENT ENT exam: Present: mucous membranes moist - Neck Neck exam: Present: normal inspection, full ROM. Absent: tenderness, meningismus - Respiratory Respiratory exam: Present: normal lung sounds bilaterally. Absent: respiratory distress, wheezes, rales, rhonchi - Cardiovascular Cardiovascular Exam: Present: normal rhythm, tachycardia, normal heart sounds. Absent: systolic murmur, diastolic murmur, rubs, gallop - GI/Abdominal GI/Abdominal exam: Present: soft, normal bowel sounds. Absent: distended, tenderness, guarding - Extremities Exam Extremities exam: Present: normal inspection - Neurological Exam Neurological exam: Present: alert, oriented X3 - Psychiatric Psychiatric exam: Present: normal affect, normal mood - Skin Skin exam: Present: warm, dry, intact, normal color. Absent: rash ED Course Vital Signs 11/06/19 11/06/19 11/06/19 09:50 10:15 10:24 Temperature 102.3 F H 101.8 F H Pulse Rate 124 H 107 H Respiratory 20 23 Rate Blood Pressure 117/81 O2 Sat by Pulse 94 Oximetry 11/06/19 11:00 Temperature Pulse Rate 102 H Respiratory 19 Rate Blood Pressure 119/80 O2 Sat by Pulse Oximetry ED Medical Decision Making - Lab Data Result diagrams: 11/06/19 11:55 11/06/19 10:05 Laboratory Results - last 24 hr 11/06/19 11/06/19 11/06/19 10:05 11:08 11:55 WBC 3.8 L RBC 4.15 Hgb 13.0 Hct 38.3 MCV 92 MCH 31 MCHC 34 RDW 12.7 L Plt Count 160 [place] % (Auto) Weaver Hand Add Manual Diff Complete Total Counted 100 Seg Neuts % (Manual) 86.0 H Band Neutrophils % 0 Lymphocytes % (Manual) 6.0 L Reactive Lymphs % (Man) 0 Monocytes % (Manual) 8.0 H Eosinophils % (Manual) 0 Basophils % (Manual) 0 Metamyelocytes % 0 Myelocytes % 0 Promyelocytes % 0 Blast Cells % 0 Nucleated RBC % Not Reportable Seg Neutrophils # Man 3.3 Band Neutrophils # 0.0 Lymphocytes # (Manual) 0.2 L Abs React Lymphs (Man) 0.0 Monocytes # (Manual) 0.3 Eosinophils # (Manual) 0.0 Basophils # (Manual) 0.0 Metamyelocytes # 0.0 Myelocytes # 0.0 Promyelocytes # 0.0 Blast Cells # 0.0 WBC Morphology Not Reportable Hypersegmented Neuts Not Reportable Hyposegmented Neuts Not Reportable Hypogranular Neuts Not Reportable Smudge Cells Not Reportable Toxic Granulation Not Reportable Toxic Vacuolation Not Reportable Dohle Bodies Not Reportable Pelger-Huet Anomaly Not Reportable Sujata Rods Not Reportable Platelet Estimate Consistent w auto Clumped Platelets Not Reportable Plt Clumps, EDTA Not Reportable Large Platelets Not Reportable Giant Platelets Not Reportable Platelet Satelliting Not Reportable Plt Morphology Comment Not Reportable RBC Morphology Not Reportable Dimorphic RBCs Not Reportable Polychromasia Not Reportable Hypochromasia Not Reportable Poikilocytosis Few Anisocytosis 1+ Microcytosis Not Reportable Macrocytosis Not Reportable Spherocytes Not Reportable Pappenheimer Bodies Not Reportable Sickle Cells Not Reportable Target Cells Not Reportable Tear Drop Cells Not Reportable Ovalocytes Few Helmet Cells Not Reportable Romero-Chinchilla Bodies Not Reportable [place] Rings Not Reportable [place] Cells Not Reportable Bite Cells Not Reportable Crenated Cell Not Reportable Elliptocytes Few Acanthocytes (Spur) Not Reportable Rouleaux Not Reportable Hemoglobin C Crystals Not Reportable Schistocytes Not Reportable Malaria parasites Not Reportable Sarmad Bodies Not Reportable Hem Pathologist Commnt No Sodium 136 L Potassium 4.1 Chloride 101.6 Carbon Dioxide 19 L Anion Gap 20 BUN 9 Creatinine 0.7 Estimated GFR > 60 BUN/Creatinine Ratio 13 Glucose 95 Calcium 9.1 Total Bilirubin 0.20 AST 27 ALT 23 Alkaline Phosphatase 107 Total Protein 7.8 Albumin 4.2 Albumin/Globulin Ratio 1.2 Urine Color Yellow Urine Turbidity Slightly-cloudy Urine pH 5.0 Ur Specific [place] 1.028 Urine Protein >500 Urine Glucose (UA) Neg Urine Ketones 20 Urine Blood Neg Urine Nitrite Neg Urine Bilirubin Neg Urine Urobilinogen < 2.0 Ur Leukocyte Esterase Tr Urine WBC (Auto) 10.0 H Urine RBC (Auto) 3.0 U Epithel Cells (Auto) 15.0 H Urine Bacteria (Auto) 1+ Granular Casts 2 Urine Mucus Few - Radiology Data Radiology results: report reviewed Chest radiograph: No acute findings - Medical Decision Making Patient symptoms resolved after supportive care in the emergency department. She presents with fever myalgias headache. I suspect viral syndrome specifically COVID-19 coronavirus considering current pandemic. Her works in an airport setting. I suggest that she self quarantine self isolate for the next 14 days. I also suggested her receives COVID-19 testing through his employment. I have reviewed labs CBC chemistry urinalysis unremarkable. Patient is eating now comfortably. I do not suspect sinusitis or meningitis. Vital Signs - 8 hr 11/06/19 11/06/19 11/06/19 09:50 10:15 10:24 Temperature 102.3 F H 101.8 F H Pulse Rate 124 H 107 H Respiratory 20 23 Rate Blood Pressure 117/81 O2 Sat by Pulse 94 Oximetry 11/06/19 11:00 Temperature Pulse Rate 102 H Respiratory 19 Rate Blood Pressure 119/80 O2 Sat by Pulse Oximetry Critical care attestation.: If time is entered above; I have spent that time in minutes in the direct care of this critically ill patient, excluding procedure time. ED Disposition Clinical Impression: Suspected COVID-19 virus infection Disposition: DC- TO HOME OR SELFCARE Is pt being admited?: No Does the pt Need Aspirin: No Condition: Stable Instructions: COVID-19 Additional Instructions: Please self isolate self quarantine for the next 14 days. Please encourage your spouse to obtain COVID-19 testing through his employment. Referrals: MARY CANELA MD [Staff Physician] - 3-5 Days
--- NOTE | 2019-11-06 10:35 | XRay Report ---
CHEST 1 VIEW 1011 INDICATION / CLINICAL INFORMATION: Fever body aches COMPARISON: None available. FINDINGS: SUPPORT DEVICES: None HEART / MEDIASTINUM: No significant abnormality. LUNGS / PLEURA: No significant pulmonary or pleural abnormality. No pneumothorax. ADDITIONAL FINDINGS: No significant additional findings. IMPRESSION: No significant acute abnormality Signer Name: Moshe Calvin MD Signed: 11/06/2019 10:31 AM Workstation Name: [id number]
[2019-11-06 11:10] LABS: Alanine Aminotransferase 23 units/L (7-56); Albumin 4.2 g/dL (3.9-5); BUN/Creatinine Ratio 13; Blood Urea Nitrogen 9 mg/dL (7-17); Calcium 9.1 mg/dL (8.4-10.2); Hemolysis Index 16
[2019-11-06 11:28] LABS: Bacteria,Urine 1+ /HPF (Negative); Bilirubin,Urine NEG (Negative); Blood,Urine NEG (Negative); Color,Urine Yellow (Yellow); Granular Casts,Urine 2 /LPF; Mucus,Urine FEW /HPF; Urobilinogen,Urine < 2.0 mg/dL (<2.0)
[2019-11-06 11:31] LABS: Protein,Urine >500 mg/dL (Negative)
[2019-11-06 12:08] LABS: Hematocrit 38.3 % (30.3-42.9); Mean Corpuscular HGB Conc 34 % (30-34); Mean Corpuscular Volume 92 fl (79-97); Platelet Count 160 K/mm3 (140-440); Red Blood Count 4.15 M/mm3 (3.65-5.03); Red Cell Distribution Width 12.7 % (13.2-15.2)
[2019-11-06 12:40] LABS: Basophils % (Manual) 0 % (0.0-1.8); Eosinophils % (Manual) 0 % (0.0-4.3); Total Cells Counted 100
[2019-11-06 12:41] LABS: Anisocytosis 1+; Ovalocytes Few; Platelet Estimate Consistent w Auto; Poikilocytosis Few
[2019-11-06 13:28] VITALS: BP 108/67
== END 2019-11-06 13:56 | disposition home or self-care (01) ==
LOC: ED 09:44
DX: R50.9 Fever, unspecified (principal); R51 Headache; Z20.828 Contact with and (suspected) exposure to other viral communicable diseases
CPT/HCPCS: 36415; 71045; 80053; 81001; 85007; 85025; 87086; 96360; 99284; J7030

== ENCOUNTER 2021-01-01 23:34 | Emergency (ER) | payer SELFPAY | END 2021-01-02 | disposition left against medical advice (07) | LOC: ED 23:34 | DX: Z00.8 Encounter for other general examination (principal); Z53.21 Procedure and treatment not carried out due to patient leaving prior to being seen by health care provider ==